=== PATIENT | female | born 1930 | race African-American/Black ===

== ENCOUNTER 2017-11-28 18:30 | Emergency (ER) | payer OTHER, BC ==
[~2017-11-28] VITALS: Ht 149.9 cm; Wt 47.6 kg
[~2017-11-28 18:30] MED LIST: CITRATE OF MAG296 ML PO; IBUPROFEN 600600 M1 PO; LOPRESSOR25 PO; LOVASTATIN 20 M20 MG PO; MIRALAX255 GM PO; NORCO 5-325 TA1 EACH PO; NORVASC2.5 MG PO; PRENATABS FA T1 EACH PO; TRAMADOL 50 MG50 MG PO
[2017-11-28] MEDS ORDERED: B-12500 MCG PO (18:43)
[2017-11-28] MEDS ORDERED: VITAMIN D1000 UNI1 PO (18:44)
[2017-11-28] MEDS ORDERED: CENTRUM SILVER1 EAC4 PO (18:44)
[2017-11-28] MEDS ORDERED: NATURAL POTASSIUM PO (18:46)
[2017-11-28] MEDS ORDERED: ASPIRIN81 M2 PO (18:47)
[2017-11-28] MEDS ORDERED: VITAMIN E400 UNIT PO (18:47)
[2017-11-28] MEDS ORDERED: SENOKOT-S1 TA2 PO (18:49)
[2017-11-28] MEDS ORDERED: ULTRAM50 MG PO (19:36)
[2017-11-28] MEDS ORDERED: METOPROLOL SUCC25 M1 PO (20:06)
[2017-11-28] MEDS ORDERED: MOBIC7.5 MG PO (21:25)
== END 2017-11-28 23:30 | disposition home or self-care (01) ==
LOC: ER 18:30
DX: M25.552 Pain in left hip (principal); I10 Essential (primary) hypertension; E78.00 Pure hypercholesterolemia, unspecified